=== PATIENT | female | born 1935 | race Hispanic/Latino ===

== ENCOUNTER 2020-03-03 16:20 | Inpatient (IN) | payer MEDICARE, OTHER ==
[~2020-03-03] VITALS: Ht 154.9 cm; Wt 42.7 kg
[2020-03-03 16:49] LABS: BASOPHILS % (AUTO) 0.3 % (0.0-5.0); EOSINOPHILS % (AUTO) 0.3 % (0.0-8.0); HEMATOCRIT 32.2 % (36-48); LYMPHOCYTES % (AUTO) 10.3 % (21.0-51.0); MEAN CORPUSCULAR HEMOGLOBIN 27.8 pg (27.0-33.0); MEAN CORPUSCULAR HGB CONC 33.2 g/dL (32.0-36.0); MEAN CORPUSCULAR VOLUME 83.6 fL (79-99); MONOCYTES % (AUTO) 7.8 % (3.0-13.0); NEUTROPHILS % (AUTO) 80.7 % (40.0-77.0); PLATELET COUNT (AUTO) 308 K/uL (130-400); RED BLOOD CELL COUNT(AUTO) 3.85 MIL/uL (4.00-5.50); RED CELL DISTRIBUTION WIDTH 16.9 % (11.0-15.5); WHITE BLOOD COUNT (AUTO) 14.5 K/uL (4.8-10.8)
[2020-03-03 17:03] LABS: POTASSIUM 5.2 mmol/L (3.5-5.1)
[2020-03-03 17:05] LABS: APPEARANCE,URINE Cloudy (CLEAR); BILIRUBIN,URINE Negative (NEGATIVE); COLOR,URINE Yellow (YELLOW); GLUCOSE, URINE (UA) Negative (NEGATIVE); KETONES,URINE Negative (NEGATIVE); LEUKOCYTE ESTERASE ,URINE Large (NEGATIVE); NITRATE,URINE Negative (NEGATIVE); OCCULT BLOOD,URINE Small (NEGATIVE); PROTEIN,URINE 300 mg/dL (NEGATIVE); UROBILINOGEN,URINE 0.2 mg/dL (0.2-1.0)
[2020-03-03 17:07] LABS: ALBUMIN 2.3 g/dL (3.5-5.0); BILIRUBIN,TOTAL 0.2 mg/dL (0.2-1.0); TOTAL PROTEIN, SERUM 7.9 g/dL (6.0-8.3)
[2020-03-03] MEDS ORDERED: ONDANSETRON HCL 4 MG/2 ML VIAL ONE (17:09)
[2020-03-03] MEDS ORDERED: MORPHINE SULFATE 2 MG/ML 1ML SYG ONE (17:10)
[2020-03-03] MEDS ORDERED: ACETAMINOPHEN 325 MG TAB ONE (17:10)
[2020-03-03 17:20] LABS: BACTERIA,URINE Few /HPF (None Seen); WBC,URINE 26-50 /HPF (0-1)
[2020-03-03 17:21] LABS: SQUAMOUS EPITHELIAL CELL,UR Rare /HPF (0-2)
[2020-03-03] MEDS ORDERED: ZOSYN 3.375GM+NS 50ML 50 ML IV ONE (17:35)
[2020-03-03] MEDS: SODIUM CHLORIDE 0.9% 1000ML 1,000 ML IV SCH (18:25)
[2020-03-03] MEDS: CEFTRIAXONE SODIUM 1 GM IV SCH (18:30)
[2020-03-03] MEDS ORDERED: ACETAMINOPHEN 325 MG TAB PO PRN (18:30)
[2020-03-03] MEDS ORDERED: HEPARIN SODIUM 5000UNIT/ML 1ML VIAL ONE (20:11)
[2020-03-03] MEDS ORDERED: CEFTRIAXONE SODIUM 1 GM ONE (20:11)
[2020-03-03] MEDS ORDERED: SODIUM CHLORIDE 0.9% 50 ML IV ONE (20:12)
[2020-03-03 20:36] LABS: CREATININE,URINE RANDOM 41 mg/dL (30-135); SODIUM,URINE RANDOM 79 mmol/l (40-220)
[2020-03-03] MEDS: HEPARIN SODIUM 5000UNIT/ML 1ML VIAL SQ SCH (21:00)
[2020-03-03] MEDS: INSULIN HUMULIN R 100 UNIT/ML 3ML SQ SCH (21:00)
[2020-03-03] MEDS: ZOSYN 3.375GM+NS 50ML 50 ML IV SCH (21:00)
[2020-03-04] MEDS: SODIUM CHLORIDE 0.9% 1000ML 1,000 ML IV SCH ×2 (04:25→14:25)
[2020-03-04 04:50] LABS: BASOPHILS % (AUTO) 0.5 % (0.0-5.0); EOSINOPHILS % (AUTO) 0.6 % (0.0-8.0); HEMATOCRIT 28.4 % (36-48); LYMPHOCYTES % (AUTO) 16.2 % (21.0-51.0); MEAN CORPUSCULAR HEMOGLOBIN 27.4 pg (27.0-33.0); MEAN CORPUSCULAR HGB CONC 32.7 g/dL (32.0-36.0); MEAN CORPUSCULAR VOLUME 83.8 fL (79-99); MONOCYTES % (AUTO) 8.5 % (3.0-13.0); NEUTROPHILS % (AUTO) 73.7 % (40.0-77.0); PLATELET COUNT (AUTO) 211 K/uL (130-400); RED BLOOD CELL COUNT(AUTO) 3.39 MIL/uL (4.00-5.50); RED CELL DISTRIBUTION WIDTH 17.1 % (11.0-15.5); WHITE BLOOD COUNT (AUTO) 7.8 K/uL (4.8-10.8)
[2020-03-04 04:57] LABS: CREATININE 2.4 mg/dL (0.5-1.5); POTASSIUM 4.6 mmol/L (3.5-5.1)
[2020-03-04] MEDS ORDERED: ZOSYN 3.375GM+NS 50ML 50 ML IV ONE (05:21)
[2020-03-04 06:40] VITALS: BP 145/67
[2020-03-04] MEDS: INSULIN HUMULIN R 100 UNIT/ML 3ML SQ SCH ×4 (07:30→21:00)
[2020-03-04 08:42] VITALS: BP 158/90
[2020-03-04 11:39] VITALS: BP 128/65
[2020-03-04] MEDS: ZOSYN 3.375GM+NS 50ML 50 ML IV SCH ×2 (12:00→21:12)
[2020-03-04] MEDS: ACETAMINOPHEN 325 MG TAB PO PRN ×2 (13:09→18:10)
[2020-03-04] MEDS: HEPARIN SODIUM 5000UNIT/ML 1ML VIAL SQ SCH ×2 (14:07→21:16)
--- NOTE | 2020-03-04 14:29 | NUR ---
Dr Abe DIAS returned page is aware of nephro consult
--- NOTE | 2020-03-04 14:30 | NUR ---
DR CHRISTIANSON spoke with Dr Christianson on the phone states he reviewed CT scan and renal ultrasound ,pt will go home with grider cath when discharged Follow up in office as outpatient when discharged 7-10 days
[2020-03-04 16:54] VITALS: BP 142/70
[2020-03-04] MEDS: CEFTRIAXONE SODIUM 1 GM IV SCH (18:06)
[2020-03-04 20:00] VITALS: BP 195/97
--- NOTE | 2020-03-04 20:31 | NUR ---
FAMILY MEMBER called family member listed on face sheet Emily montenegro of patient states she will call back the list of home meds for patient updated family on pt condition ,explained to family pt will go home with grider catheter as ordered by Dr Faulkner
[2020-03-04] MEDS ORDERED: HYDRALAZINE HCL 20 MG/ML VIAL ONE (21:23)
[2020-03-04] MEDS ORDERED: PHARMACY COMMUNICATION MISC SCH (21:45)
[2020-03-05] VITALS (7 sets, daily range): BP systolic 83–177; BP diastolic 62–88
[2020-03-05 04:48] LABS: BASOPHILS % (AUTO) 0.5 % (0.0-5.0); HEMATOCRIT 27.5 % (36-48); LYMPHOCYTES % (AUTO) 10.8 % (21.0-51.0); MEAN CORPUSCULAR HEMOGLOBIN 27.1 pg (27.0-33.0); MEAN CORPUSCULAR VOLUME 84.6 fL (79-99); MONOCYTES % (AUTO) 6.7 % (3.0-13.0); NEUTROPHILS % (AUTO) 80.5 % (40.0-77.0); PLATELET COUNT (AUTO) 244 K/uL (130-400); RED BLOOD CELL COUNT(AUTO) 3.25 MIL/uL (4.00-5.50); RED CELL DISTRIBUTION WIDTH 17.1 % (11.0-15.5)
[2020-03-05 05:05] LABS: CREATININE 1.8 mg/dL (0.5-1.5); POTASSIUM 4.2 mmol/L (3.5-5.1)
[2020-03-05 05:08] LABS: % IRON SATURATION 9.6 % (22-44)
[2020-03-05] MEDS: INSULIN HUMULIN R 100 UNIT/ML 3ML SQ SCH ×4 (07:30→20:18)
[2020-03-05] MEDS: SODIUM CHLORIDE 0.9% 1000ML 1,000 ML IV SCH ×2 (07:32→21:14)
[2020-03-05] MEDS: ZOSYN 3.375GM+NS 50ML 50 ML IV SCH ×2 (09:30→21:15)
[2020-03-05] MEDS: HEPARIN SODIUM 5000UNIT/ML 1ML VIAL SQ SCH ×3 (09:38→21:16)
[2020-03-05] MEDS: HYDRALAZINE HCL 20 MG/ML VIAL IV PRN (09:46)
[2020-03-05] MEDS: TRAMADOL HCL 50 MG TABLET PO PRN (10:37)
[2020-03-05] MEDS ORDERED: COMPOUND IV MISC 1 EACH IVSOLN MISC PRN (12:45)
[2020-03-05] MEDS: CEFTRIAXONE SODIUM 1 GM IV SCH (18:30)
[2020-03-06 03:45] VITALS: BP 138/76
[2020-03-06 04:37] LABS: BASOPHILS % (AUTO) 0.4 % (0.0-5.0); EOSINOPHILS % (AUTO) 1.1 % (0.0-8.0); HEMATOCRIT 28.3 % (36-48); LYMPHOCYTES % (AUTO) 7.3 % (21.0-51.0); MEAN CORPUSCULAR HEMOGLOBIN 27.2 pg (27.0-33.0); MEAN CORPUSCULAR HGB CONC 31.4 g/dL (32.0-36.0); MEAN CORPUSCULAR VOLUME 86.5 fL (79-99); MONOCYTES % (AUTO) 4.9 % (3.0-13.0); NEUTROPHILS % (AUTO) 85.6 % (40.0-77.0); PLATELET COUNT (AUTO) 235 K/uL (130-400); RED BLOOD CELL COUNT(AUTO) 3.27 MIL/uL (4.00-5.50); RED CELL DISTRIBUTION WIDTH 17.5 % (11.0-15.5); WHITE BLOOD COUNT (AUTO) 12.1 K/uL (4.8-10.8)
[2020-03-06 05:00] LABS: CREATININE 1.4 mg/dL (0.5-1.5); POTASSIUM 4.1 mmol/L (3.5-5.1)
[2020-03-06] MEDS: INSULIN HUMULIN R 100 UNIT/ML 3ML SQ SCH ×4 (06:25→21:00)
[2020-03-06 08:00] VITALS: BP 165/80
[2020-03-06] MEDS: HEPARIN SODIUM 5000UNIT/ML 1ML VIAL SQ SCH ×3 (10:39→21:02)
[2020-03-06] MEDS: IRON SUCROSE COMPLEX 100 MG in SODIUM CHLORIDE 0.9% 50 ML IV SCH (10:40)
[2020-03-06 11:00] VITALS: BP 170/83
[2020-03-06 16:00] VITALS: BP 172/92
[2020-03-06] MEDS: HYDRALAZINE HCL 20 MG/ML VIAL IV PRN (16:40)
[2020-03-06] MEDS: CEFTRIAXONE SODIUM 1 GM IV SCH (18:41)
--- NOTE | 2020-03-06 18:47 | NUR ---
[facility] CM spoke to pt's [facility] Emily Espana [phone] discussed dc plans. As per [facility] pt is semi-independent, lives at home with lan, lan is pt's caregiver. Pt has a wheelchair, hospital bed, bedside commode. Denies any other equipments/services. Feels safe to go back home, doroteoer able to assist with transportation and needs as necessary. Dc plan to home once stable. CM to cont to follow up. Addendum: 03/06/20 at 1850 by BELKYS SALMON LVN CM Amended: Links added.
[2020-03-06 20:52] VITALS: BP 119/65
[2020-03-07 00:23] VITALS: BP 145/82
[2020-03-07 03:51] VITALS: BP 138/68
[2020-03-07] MEDS: INSULIN HUMULIN R 100 UNIT/ML 3ML SQ SCH ×4 (07:30→20:57)
[2020-03-07 08:14] VITALS: BP 141/72
[2020-03-07] MEDS: IRON SUCROSE COMPLEX 100 MG in SODIUM CHLORIDE 0.9% 50 ML IV SCH (09:00)
[2020-03-07] MEDS: HEPARIN SODIUM 5000UNIT/ML 1ML VIAL SQ SCH ×3 (11:09→19:39)
[2020-03-07] MEDS: HYDRALAZINE HCL 20 MG/ML VIAL IV PRN (14:20)
[2020-03-07 16:00] VITALS: BP 98/59
[2020-03-07 16:38] LABS: APPEARANCE,URINE Cloudy (CLEAR); BILIRUBIN,URINE Negative (NEGATIVE); COLOR,URINE Yellow (YELLOW); GLUCOSE, URINE (UA) Negative (NEGATIVE); KETONES,URINE Trace mg/dL (NEGATIVE); LEUKOCYTE ESTERASE ,URINE Large (NEGATIVE); NITRATE,URINE Negative (NEGATIVE); OCCULT BLOOD,URINE Trace (NEGATIVE); PH,URINE 5.5 (5.0-8.0); PROTEIN,URINE POS 2+ mg/dL (NEGATIVE); UROBILINOGEN,URINE 0.2 mg/dL (0.2-1.0)
[2020-03-07 16:50] LABS: BACTERIA,URINE Few /HPF (None Seen); RBC,URINE None Seen /HPF (0-1); SQUAMOUS EPITHELIAL CELL,UR None Seen /HPF (0-2); WBC,URINE >100 /HPF (0-1)
[2020-03-07] MEDS: CEFTRIAXONE SODIUM 1 GM IV SCH (18:08)
[2020-03-07] MEDS: TRAMADOL HCL 50 MG TABLET PO PRN (19:34)
[2020-03-07 20:00] VITALS: BP 132/63
[2020-03-08] VITALS (7 sets, daily range): BP systolic 115–165; BP diastolic 65–98
[2020-03-08 04:39] LABS: HEMATOCRIT 28.8 % (36-48); MEAN CORPUSCULAR HEMOGLOBIN 27.6 pg (27.0-33.0); MEAN CORPUSCULAR VOLUME 83.7 fL (79-99); RED BLOOD CELL COUNT(AUTO) 3.44 MIL/uL (4.00-5.50); RED CELL DISTRIBUTION WIDTH 17.8 % (11.0-15.5); WHITE BLOOD COUNT (AUTO) 11.2 K/uL (4.8-10.8)
[2020-03-08 05:01] LABS: ALBUMIN 1.8 g/dL (3.5-5.0); BILIRUBIN,TOTAL 0.1 mg/dL (0.2-1.0); CREATININE 1.1 mg/dL (0.5-1.5); TOTAL PROTEIN, SERUM 6.9 g/dL (6.0-8.3)
[2020-03-08 05:20] LABS: POTASSIUM 2.9 mmol/L (3.5-5.1)
[2020-03-08] MEDS: INSULIN HUMULIN R 100 UNIT/ML 3ML SQ SCH ×4 (05:38→20:25)
[2020-03-08] MEDS ORDERED: POTASSIUM CHLORIDE 20 MEQ ERTAB PO SCH (05:45)
[2020-03-08] MEDS ORDERED: POTASSIUM CHLORIDE 20 MEQ ERTAB PO ONE (06:10)
[2020-03-08] MEDS: MAGNESIUM 2GM PREMIX 50ML 50 ML IV SCH (06:29)
[2020-03-08] MEDS: HEPARIN SODIUM 5000UNIT/ML 1ML VIAL SQ SCH ×3 (09:26→20:24)
[2020-03-08] MEDS: IRON SUCROSE COMPLEX 100 MG in SODIUM CHLORIDE 0.9% 50 ML IV SCH (09:44)
[2020-03-08] MEDS: CEFTRIAXONE SODIUM 1 GM IV SCH (17:18)
[2020-03-08] MEDS ORDERED: AMLO5TAB9 PO (17:46)
[2020-03-08] MEDS ORDERED: LISI2.5T2 PO (17:47)
[2020-03-08] MEDS ORDERED: CLOP75TA14 PO (17:49)
[2020-03-08] MEDS ORDERED: METF500S7 PO (17:50)
[2020-03-08] MEDS ORDERED: BENA10TA77 PO (17:50)
[2020-03-08] MEDS ORDERED: SIMV-46 PO (17:51)
[2020-03-08] MEDS ORDERED: AMLODIPINE BESYLATE 5 MG TAB PO SCH (18:30)
[2020-03-08] MEDS ORDERED: AMLODIPINE BESYLATE 5 MG TAB ONE (18:33)
[2020-03-09 03:27] VITALS: BP 130/75
[2020-03-09 05:44] LABS: BASOPHILS % (AUTO) 0.4 % (0.0-5.0); EOSINOPHILS % (AUTO) 2.9 % (0.0-8.0); HEMATOCRIT 25.8 % (36-48); LYMPHOCYTES % (AUTO) 17.8 % (21.0-51.0); MEAN CORPUSCULAR HEMOGLOBIN 27.6 pg (27.0-33.0); MEAN CORPUSCULAR HGB CONC 32.9 g/dL (32.0-36.0); MEAN CORPUSCULAR VOLUME 83.8 fL (79-99); MONOCYTES % (AUTO) 6.8 % (3.0-13.0); NEUTROPHILS % (AUTO) 70.9 % (40.0-77.0); PLATELET COUNT (AUTO) 232 K/uL (130-400); RED BLOOD CELL COUNT(AUTO) 3.08 MIL/uL (4.00-5.50); RED CELL DISTRIBUTION WIDTH 17.8 % (11.0-15.5)
[2020-03-09] MEDS: INSULIN HUMULIN R 100 UNIT/ML 3ML SQ SCH ×4 (05:47→20:15)
[2020-03-09 06:08] LABS: ALBUMIN 1.7 g/dL (3.5-5.0); BILIRUBIN,TOTAL 0.1 mg/dL (0.2-1.0); POTASSIUM 3.3 mmol/L (3.5-5.1); TOTAL PROTEIN, SERUM 6.6 g/dL (6.0-8.3)
[2020-03-09] MEDS: MAGNESIUM 2GM PREMIX 50ML 50 ML IV SCH (06:40)
[2020-03-09 08:00] VITALS: BP 153/81
[2020-03-09] MEDS: IRON SUCROSE COMPLEX 100 MG in SODIUM CHLORIDE 0.9% 50 ML IV SCH (08:03)
[2020-03-09] MEDS: LISINOPRIL 2.5 MG TABLET PO SCH (08:04)
[2020-03-09] MEDS: SIMVASTATIN 20 MG TABLET PO SCH (08:05)
[2020-03-09] MEDS: TRAMADOL HCL 50 MG TABLET PO PRN ×2 (08:06→16:25)
--- NOTE | 2020-03-09 08:11 | NUR ---
HEART RATE 120-130 irregular called Iraida Lemos NEEDLE FELT MAKING MACHINE OPERATOR telemetry monitoring ordered
[2020-03-09] MEDS ORDERED: METOPROLOL TARTRATE 25 MG TAB PO SCH (08:45)
--- NOTE | 2020-03-09 08:46 | NUR ---
DIRECTOR OF EMPLOYEE DEVELOPMENT tele shows a fib rate 130 140 s Iraida Lemos STORAGE ADMINISTRATOR gave new orders
[2020-03-09] MEDS ORDERED: BENAZEPRIL HCL 10 MG TABLET PO SCH (09:00)
--- NOTE | 2020-03-09 10:10 | NUR ---
TELEMETRY sinus rhythm rate =81 notified Iraida Lemos NP of change in rhythm
[2020-03-09 11:00] VITALS: BP 123/62
--- NOTE | 2020-03-09 12:00 | NUR ---
DCP UPDATE: In to speak w pt regarding dcp. Pt is BERYL and requests to speak w Dtr Rose Marie. Call placed to Rose Marie Andrews @ [phone], per Rose Marie pt has been to [facility] and would prefer that this be the first option. BOB/PC also obtained for kelvin alford and barbie if [facility] is unable to accept pt. Referral/COVID assessment form faxed to [facility]. Call placed to George who confirmed receiving information. Yannick Vazquez will submit request to insurance on .
--- NOTE | 2020-03-09 14:00 | NUR ---
IV SITE DC LEFT HAND restarted iv right forearm x1 attempt 20 gauge
[2020-03-09 16:00] VITALS: BP 134/75
[2020-03-09] MEDS ORDERED: POTASSIUM CHLORIDE 10% ELIXIR 20 MEQ/15 ML UDCUP PO SCH (16:00)
[2020-03-09] MEDS: CLOPIDOGREL BISULFATE 75 MG TAB PO SCH (16:00)
[2020-03-09] MEDS ORDERED: POTASSIUM CHLORIDE 10% ELIXIR 20 MEQ/15 ML UDCUP ONE (16:13)
[2020-03-09] MEDS: METFORMIN HCL 500 MG TABLET PO SCH (16:27)
[2020-03-09] MEDS: CEFTRIAXONE SODIUM 1 GM IV SCH (16:28)
[2020-03-09] MEDS ORDERED: PHARMACY COMMUNICATION MISC SCH (16:45)
[2020-03-09 19:41] VITALS: BP 131/61
[2020-03-10] VITALS (7 sets, daily range): BP systolic 140–185; BP diastolic 68–80
[2020-03-10 05:13] LABS: MEAN CORPUSCULAR HGB CONC 33.2 g/dL (32.0-36.0); MEAN CORPUSCULAR VOLUME 84.5 fL (79-99); RED BLOOD CELL COUNT(AUTO) 2.96 MIL/uL (4.00-5.50); RED CELL DISTRIBUTION WIDTH 18.2 % (11.0-15.5)
[2020-03-10 05:24] LABS: CREATININE 0.9 mg/dL (0.5-1.5); POTASSIUM 3.6 mmol/L (3.5-5.1)
[2020-03-10 05:29] LABS: ALBUMIN 1.6 g/dL (3.5-5.0); BILIRUBIN,TOTAL 0.1 mg/dL (0.2-1.0); TOTAL PROTEIN, SERUM 6.3 g/dL (6.0-8.3)
[2020-03-10] MEDS: INSULIN HUMULIN R 100 UNIT/ML 3ML SQ SCH ×4 (06:06→22:13)
[2020-03-10] MEDS: MAGNESIUM 2GM PREMIX 50ML 50 ML IV SCH (06:18)
[2020-03-10] MEDS: METOPROLOL TARTRATE 25 MG TAB PO SCH (09:40)
[2020-03-10] MEDS: LISINOPRIL 2.5 MG TABLET PO SCH (09:40)
[2020-03-10] MEDS: SIMVASTATIN 20 MG TABLET PO SCH (09:41)
[2020-03-10] MEDS: CLOPIDOGREL BISULFATE 75 MG TAB PO SCH (09:41)
[2020-03-10] MEDS: IRON SUCROSE COMPLEX 100 MG in SODIUM CHLORIDE 0.9% 50 ML IV SCH (09:41)
--- NOTE | 2020-03-10 13:50 | NUR ---
CM Note: STR pending approval CM faxed [facility] request for EMS transport to [facility] for tomorrow, confirmation received. Pt pending approval for STR. Pending covid result ordered today. MOT semi-filled out, pending to complete once pt has approval. EMS arranged for tomorrow, primary nurse to call [facility] once pt ready to DC. Primary nurse aware. CM to cont to follow up.
[2020-03-10] MEDS: METFORMIN HCL 500 MG TABLET PO SCH (18:01)
[2020-03-10] MEDS: CEFTRIAXONE SODIUM 1 GM IV SCH (18:01)
[2020-03-10] MEDS: ACETAMINOPHEN 325 MG TAB PO PRN (18:27)
[2020-03-11] VITALS (7 sets, daily range): BP systolic 130–188; BP diastolic 64–83
[2020-03-11] MEDS: HYDRALAZINE HCL 20 MG/ML VIAL IV PRN (04:12)
[2020-03-11] MEDS: TRAMADOL HCL 50 MG TABLET PO PRN (04:17)
[2020-03-11] MEDS: INSULIN HUMULIN R 100 UNIT/ML 3ML SQ SCH ×3 (05:21→21:00)
[2020-03-11 05:55] LABS: HEMATOCRIT 27.5 % (36-48); MEAN CORPUSCULAR HEMOGLOBIN 27.4 pg (27.0-33.0); MEAN CORPUSCULAR HGB CONC 32.7 g/dL (32.0-36.0); MEAN CORPUSCULAR VOLUME 83.8 fL (79-99); RED BLOOD CELL COUNT(AUTO) 3.28 MIL/uL (4.00-5.50); RED CELL DISTRIBUTION WIDTH 17.8 % (11.0-15.5); WHITE BLOOD COUNT (AUTO) 15.2 K/uL (4.8-10.8)
[2020-03-11 06:18] LABS: CREATININE 0.8 mg/dL (0.5-1.5); POTASSIUM 3.1 mmol/L (3.5-5.1)
[2020-03-11 06:23] LABS: ALBUMIN 1.8 g/dL (3.5-5.0); BILIRUBIN,TOTAL 0.1 mg/dL (0.2-1.0); TOTAL PROTEIN, SERUM 6.5 g/dL (6.0-8.3)
[2020-03-11] MEDS: METOPROLOL TARTRATE 25 MG TAB PO SCH (06:51)
[2020-03-11] MEDS ORDERED: POTASSIUM CHLORIDE 20 MEQ ERTAB PO SCH (07:15)
[2020-03-11] MEDS: LISINOPRIL 2.5 MG TABLET PO SCH (08:42)
[2020-03-11] MEDS: SIMVASTATIN 20 MG TABLET PO SCH (08:42)
[2020-03-11] MEDS: CLOPIDOGREL BISULFATE 75 MG TAB PO SCH (08:43)
[2020-03-11] MEDS: ACETAMINOPHEN 325 MG TAB PO PRN (08:44)
[2020-03-11] MEDS: IRON SUCROSE COMPLEX 100 MG in SODIUM CHLORIDE 0.9% 50 ML IV SCH (08:49)
[2020-03-11] MEDS: ONDANSETRON HCL 4 MG/2 ML VIAL IV PRN (08:56)
--- NOTE | 2020-03-11 16:12 | NUR ---
CM Note: STR still pending approval at this time CM spoke to Cyn w/[facility], pt still pending approval at this time, also pending covid result, will send once available. Primary nurse aware. CM to cont to follow up.
--- NOTE | 2020-03-11 21:30 | NUR ---
MEDS SHIFT ASSESSMENT DONE, PLEASE REFER TO CHART. DUE MEDS ADMINISTERED, TOLERATED WELL. CALL LIGHT WITHIN REACH. WILL MONITOR CLOSELY. Addendum: 03/12/20 at 0043 by ALLIE CASTANEDA RN RN Amended: Links added.
[2020-03-11] MEDS: CEFTRIAXONE SODIUM 1 GM IV SCH (21:31)
--- NOTE | 2020-03-12 02:00 | NUR ---
ROUNDS PT RESTING WELL, FAIRLY ASLEEP. NO DISTRESS NOTED. KEPT UNDISTURBED FOR NOW. WILL CONTINUE TO MONITOR.
[2020-03-12 04:04] VITALS: BP 145/87
--- NOTE | 2020-03-12 04:35 | NUR ---
ROUNDS PRINCIPAL QUALITY ENGINEER AWAKENED PT FOR BLOOD DRAW. PT DENIES ANY NEEDS AT THIS TIME. KEPT COMFORTABLE IN BED WITH HOB ELEVATED. WILL MONITOR PT.
[2020-03-12 04:47] LABS: HEMATOCRIT 25.5 % (36-48); MEAN CORPUSCULAR HEMOGLOBIN 27.4 pg (27.0-33.0); MEAN CORPUSCULAR HGB CONC 31.8 g/dL (32.0-36.0); MEAN CORPUSCULAR VOLUME 86.1 fL (79-99); RED BLOOD CELL COUNT(AUTO) 2.96 MIL/uL (4.00-5.50); RED CELL DISTRIBUTION WIDTH 18.3 % (11.0-15.5); WHITE BLOOD COUNT (AUTO) 12.6 K/uL (4.8-10.8)
[2020-03-12 05:06] LABS: CREATININE 0.8 mg/dL (0.5-1.5); POTASSIUM 3.3 mmol/L (3.5-5.1)
[2020-03-12 05:10] LABS: ALBUMIN 1.6 g/dL (3.5-5.0); BILIRUBIN,TOTAL 0.1 mg/dL (0.2-1.0); TOTAL PROTEIN, SERUM 6.3 g/dL (6.0-8.3)
[2020-03-12] MEDS: INSULIN HUMULIN R 100 UNIT/ML 3ML SQ SCH ×4 (06:05→21:00)
[2020-03-12 08:51] VITALS: BP 146/72
[2020-03-12] MEDS: LISINOPRIL 2.5 MG TABLET PO SCH (09:39)
[2020-03-12] MEDS: SIMVASTATIN 20 MG TABLET PO SCH (09:39)
[2020-03-12] MEDS: METOPROLOL TARTRATE 25 MG TAB PO SCH (09:41)
[2020-03-12] MEDS: CLOPIDOGREL BISULFATE 75 MG TAB PO SCH (09:41)
[2020-03-12] MEDS: IRON SUCROSE COMPLEX 100 MG in SODIUM CHLORIDE 0.9% 50 ML IV SCH (09:45)
[2020-03-12 11:09] VITALS: BP 148/88
--- NOTE | 2020-03-12 12:00 | NUR ---
CM Note: [facility] pending approval CM spoke to pt's daughter Rose Marie Andrews made aware of insurance denial for STR, but will approve SNF. Initially signed consent for [facility] and [facility] as plan B. As per daughter ok to follow through w/plan B, requested to send to [facility] first. Faxed order, clinicals, PT, [facility], Covid Transfer Form, Covid result fr 03/10, confirmation received. Spoke to Kady figueroa [facility] once approved. EMS arranged and faxed for today, primary nurse to call [facility] once. [facility] faxed request for EMS, confirmation received, pending auth. Primary nurse aware. CM to cont to follow up.
[2020-03-12] MEDS: METFORMIN HCL 500 MG TABLET PO SCH (16:33)
[2020-03-12 17:16] VITALS: BP 131/59
[2020-03-12] MEDS: CEFTRIAXONE SODIUM 1 GM IV SCH (18:44)
[2020-03-12 19:28] VITALS: BP 139/73
[2020-03-12] MEDS ORDERED: LIDOCAINE HCL-MPF 1% 2ML VIAL IJ PRN (19:30)
[2020-03-12] MEDS ORDERED: POTASSIUM CHLORIDE 10% ELIXIR 20 MEQ/15 ML UDCUP PO PRN (19:30)
[2020-03-12] MEDS ORDERED: POTASSIUM CHLORIDE 20MEQ/100ML 100 ML IV PRN (19:30)
[2020-03-12] MEDS: POTASSIUM CHLORIDE 20 MEQ ERTAB PO PRN (22:48)
[2020-03-12 23:30] VITALS: BP 141/69
[2020-03-13] MEDS: POTASSIUM CHLORIDE 20 MEQ ERTAB PO PRN (00:12)
[2020-03-13 03:38] VITALS: BP 146/64
[2020-03-13 04:19] LABS: HEMATOCRIT 28.8 % (36-48); MEAN CORPUSCULAR HEMOGLOBIN 27.4 pg (27.0-33.0); MEAN CORPUSCULAR HGB CONC 30.6 g/dL (32.0-36.0); MEAN CORPUSCULAR VOLUME 89.7 fL (79-99); RED BLOOD CELL COUNT(AUTO) 3.21 MIL/uL (4.00-5.50); RED CELL DISTRIBUTION WIDTH 18.2 % (11.0-15.5); WHITE BLOOD COUNT (AUTO) 8.8 K/uL (4.8-10.8)
[2020-03-13 04:26] LABS: CREATININE 0.8 mg/dL (0.5-1.5); POTASSIUM 4.6 mmol/L (3.5-5.1)
[2020-03-13 04:35] LABS: ALBUMIN 1.6 g/dL (3.5-5.0); BILIRUBIN,TOTAL 0.2 mg/dL (0.2-1.0); TOTAL PROTEIN, SERUM 5.8 g/dL (6.0-8.3)
[2020-03-13] MEDS: INSULIN HUMULIN R 100 UNIT/ML 3ML SQ SCH ×4 (07:30→20:52)
--- NOTE | 2020-03-13 07:45 | NUR ---
PATIENT UPDATE K+=3.3 yesterday, covered as per hypokalemia protocol with 3 doses of 20meq kcl elixir and tabs which the pt tolerated well. Latest K+=4.6 this am.
[2020-03-13 09:41] VITALS: BP 151/63
[2020-03-13] MEDS: CLOPIDOGREL BISULFATE 75 MG TAB PO SCH (10:24)
[2020-03-13] MEDS: SIMVASTATIN 20 MG TABLET PO SCH (10:24)
[2020-03-13] MEDS: TRAMADOL HCL 50 MG TABLET PO PRN ×2 (10:24→19:54)
[2020-03-13] MEDS: LISINOPRIL 2.5 MG TABLET PO SCH (10:24)
[2020-03-13] MEDS: IRON SUCROSE COMPLEX 100 MG in SODIUM CHLORIDE 0.9% 50 ML IV SCH (10:24)
[2020-03-13] MEDS: METOPROLOL TARTRATE 25 MG TAB PO SCH (10:24)
[2020-03-13 11:35] VITALS: BP 187/83
[2020-03-13] MEDS: METFORMIN HCL 500 MG TABLET PO SCH (16:40)
--- NOTE | 2020-03-13 16:42 | NUR ---
CM Note: [facility] pending approval CM spoke to Kady cardenas/Elias Harris. Pt still pending approval at this time. EMS arranged for today in case, primary nurse to call [facility] once pt ready to DC. Primary nurse aware. CM to cont to follow up.
[2020-03-13 16:43] VITALS: BP 120/40
[2020-03-13 20:00] VITALS: BP 168/83
[2020-03-13] MEDS: ONDANSETRON HCL 4 MG/2 ML VIAL IV PRN (20:02)
[2020-03-13 23:43] VITALS: BP 150/86
[2020-03-14 03:53] VITALS: BP 165/74
[2020-03-14] MEDS: HYDRALAZINE HCL 20 MG/ML VIAL IV PRN (03:57)
[2020-03-14 05:16] LABS: BASOPHILS % (AUTO) 0.4 % (0.0-5.0); EOSINOPHILS % (AUTO) 2.9 % (0.0-8.0); HEMATOCRIT 25.8 % (36-48); LYMPHOCYTES % (AUTO) 21.3 % (21.0-51.0); MEAN CORPUSCULAR HEMOGLOBIN 27.6 pg (27.0-33.0); MEAN CORPUSCULAR HGB CONC 32.2 g/dL (32.0-36.0); MEAN CORPUSCULAR VOLUME 85.7 fL (79-99); MONOCYTES % (AUTO) 7.2 % (3.0-13.0); NEUTROPHILS % (AUTO) 67.2 % (40.0-77.0); PLATELET COUNT (AUTO) 226 K/uL (130-400); RED BLOOD CELL COUNT(AUTO) 3.01 MIL/uL (4.00-5.50); RED CELL DISTRIBUTION WIDTH 18.1 % (11.0-15.5); WHITE BLOOD COUNT (AUTO) 11.5 K/uL (4.8-10.8)
[2020-03-14] MEDS: TRAMADOL HCL 50 MG TABLET PO PRN (05:21)
[2020-03-14] MEDS: INSULIN HUMULIN R 100 UNIT/ML 3ML SQ SCH ×3 (05:22→16:30)
[2020-03-14 05:41] LABS: ALBUMIN 1.6 g/dL (3.5-5.0); BILIRUBIN,TOTAL 0.1 mg/dL (0.2-1.0); CREATININE 0.8 mg/dL (0.5-1.5); POTASSIUM 4.2 mmol/L (3.5-5.1); TOTAL PROTEIN, SERUM 6.3 g/dL (6.0-8.3)
[2020-03-14 08:00] VITALS: BP 128/79
[2020-03-14] MEDS: METOPROLOL TARTRATE 25 MG TAB PO SCH (08:45)
[2020-03-14] MEDS: LISINOPRIL 2.5 MG TABLET PO SCH (08:45)
[2020-03-14] MEDS: SIMVASTATIN 20 MG TABLET PO SCH (08:45)
[2020-03-14] MEDS: CLOPIDOGREL BISULFATE 75 MG TAB PO SCH (08:45)
[2020-03-14] MEDS: IRON SUCROSE COMPLEX 100 MG in SODIUM CHLORIDE 0.9% 50 ML IV SCH (09:35)
[2020-03-14 11:40] VITALS: BP 166/75
--- NOTE | 2020-03-14 13:03 | NUR ---
CM Note: [facility] approval CM spoke to Kady cardenas/Elias Harris. Pt has approval, EMS arranged and faxed for today. Primary nurse to give report to Elias Harris and call [facility] once pt ready to DC. Primary nurse Miranda LIZARRAGA aware. CM to cont to follow up.
--- NOTE | 2020-03-14 14:48 | NUR ---
RD NOTIFICATION Pt with Low BMI, advanced age. Improving PO intake @75%. Heart Healthy diet order. No report of GI distress, Antiemetic in place. Monitored labs: WBC 11.5, BUN 6, Ca 7.5, T. Bili 0.1, Alb 1.6. Recommend Glucerna BID Recommend daily MVI RD to continue to monitor. Please notify as additional nutrition concerns arise. Thank you.
[2020-03-14 16:00] VITALS: BP 178/82
[2020-03-14] MEDS: METFORMIN HCL 500 MG TABLET PO SCH (17:25)
== END 2020-03-14 18:30 | DRG 682 ==
LOC: EDH 16:20 → EDHIP 18:25 → 3CH 03-04 04:29
PROVIDERS: ADMIT Internal Medicine; ATTEND Internal Medicine
DX: N17.9 Acute kidney failure, unspecified (principal); E43 Unspecified severe protein-calorie malnutrition; E87.1 Hypo-osmolality and hyponatremia; Z68.1 Body mass index [BMI] 19.9 or less, adult; N13.6 Pyonephrosis; E87.5 Hyperkalemia; D64.9 Anemia, unspecified; E11.22 Type 2 diabetes mellitus with diabetic chronic kidney disease; E78.5 Hyperlipidemia, unspecified; E83.42 Hypomagnesemia; E87.6 Hypokalemia; F03.90 Unspecified dementia, unspecified severity, without behavioral disturbance, psychotic disturbance, mood disturbance, and anxiety; I12.9 Hypertensive chronic kidney disease with stage 1 through stage 4 chronic kidney disease, or unspecified chronic kidney disease; M19.90 Unspecified osteoarthritis, unspecified site; M81.0 Age-related osteoporosis without current pathological fracture; N18.9 Chronic kidney disease, unspecified; N28.1 Cyst of kidney, acquired; N32.0 Bladder-neck obstruction; R62.7 Adult failure to thrive; R33.9 Retention of urine, unspecified; N31.9 Neuromuscular dysfunction of bladder, unspecified; E87.8 Other disorders of electrolyte and fluid balance, not elsewhere classified; Z20.828 Contact with and (suspected) exposure to other viral communicable diseases; Z79.02 Long term (current) use of antithrombotics/antiplatelets; Z79.84 Long term (current) use of oral hypoglycemic drugs; Z79.899 Other long term (current) drug therapy; Z86.73 Personal history of transient ischemic attack (TIA), and cerebral infarction without residual deficits; Z90.710 Acquired absence of both cervix and uterus
CPT/HCPCS: 36415; 74176; 76770; 76775; 80048; 80053; 81001; 82550; 82570; 82948; 83540; 83550; 83605; 83690; 83735; 84145; 84300; 84484; 85025; 85027; 87040; 87088; 93005; 97039; 99291; G0378; J0360; J0696; J1644; J1756; J1815; J2405; J2543; J3475; J7030; U0003

== ENCOUNTER → 2020-06-18 | Outpatient (CLI) | payer MEDICARE ==
[~2020-06-18] MED LIST: AMLO-257 PO; CLOP75TA14 PO; LISI2.5T2 PO; METF500S7 PO; SIMV-46 PO
== END | disposition home or self-care (01) ==
LOC: RAH 10:44
PROVIDERS: ATTEND Internal Medicine
DX: I82.442 Acute embolism and thrombosis of left tibial vein (principal)
CPT/HCPCS: 93971

== ENCOUNTER 2020-06-20 09:03 | Day surgery (SDC) | payer MEDICARE ==
[2020-06-20] MEDS ORDERED: SODIUM CHLORIDE 0.9% 1000ML 1,000 ML IV ONE (09:46)
[2020-06-20 10:02] LABS: BASOPHILS % (AUTO) 0.6 % (0.0-5.0); EOSINOPHILS % (AUTO) 1.3 % (0.0-8.0); HEMATOCRIT 37.5 % (36-48); LYMPHOCYTES % (AUTO) 25.7 % (21.0-51.0); MEAN CORPUSCULAR HEMOGLOBIN 29.6 pg (27.0-33.0); MEAN CORPUSCULAR HGB CONC 32.8 g/dL (32.0-36.0); MEAN CORPUSCULAR VOLUME 90.4 fL (79-99); MONOCYTES % (AUTO) 6.1 % (3.0-13.0); NEUTROPHILS % (AUTO) 65.9 % (40.0-77.0); PLATELET COUNT (AUTO) 260 K/uL (130-400); RED BLOOD CELL COUNT(AUTO) 4.15 MIL/uL (4.00-5.50); RED CELL DISTRIBUTION WIDTH 13.2 % (11.0-15.5); WHITE BLOOD COUNT (AUTO) 9.1 K/uL (4.8-10.8)
[2020-06-20 10:09] LABS: CREATININE 0.9 mg/dL (0.5-1.5); POTASSIUM 4.4 mmol/L (3.5-5.1)
[2020-06-20 11:51] LABS: INR 0.96 (0.85-1.15); PROTHROMBIN TIME 10.3 SEC (9.6-11.6)
[2020-06-20 11:53] LABS: PARTIAL THROMBOPLASTIN TIME 26.9 SEC (26.3-35.5)
[2020-06-20] MEDS ORDERED: LIDOCAINE HCL 1% MDV 50ML VIAL ONE (11:57)
[2020-06-20] MEDS ORDERED: IODIXANOL 320 MG/ML 100 ML VIAL ONE (11:57)
[2020-06-20 12:55] VITALS: BP 173/77
[2020-06-20 13:10] VITALS: BP 142/74
[2020-06-20 13:25] VITALS: BP 173/77
== END 2020-06-20 13:25 | disposition home or self-care (01) ==
LOC: CLH 09:03
PROVIDERS: ATTEND Internal Medicine
DX: I82.442 Acute embolism and thrombosis of left tibial vein (principal); I10 Essential (primary) hypertension; E11.9 Type 2 diabetes mellitus without complications; M81.0 Age-related osteoporosis without current pathological fracture; F03.90 Unspecified dementia, unspecified severity, without behavioral disturbance, psychotic disturbance, mood disturbance, and anxiety; Z90.710 Acquired absence of both cervix and uterus; Z79.02 Long term (current) use of antithrombotics/antiplatelets; Z79.01 Long term (current) use of anticoagulants
CPT/HCPCS: 36415; 37191; 80048; 85025; 85610; 85730; C1769; C1880; C1894; J1644; J3490; J7030; Q9967